=== PATIENT | male | born 1985 | race Caucasian/White ===

== ENCOUNTER 2017-11-10 10:09 | Emergency (ER) | payer SELFPAY ==
--- NOTE | 2017-11-10 10:13 | ER Report ---
History and Physical Time Seen By MD: 10:12 HPI/ROS CHIEF COMPLAINT: Shoulder pain HISTORY OF PRESENT ILLNESS: Patient states having pain to the anterior right shoulder. States that he feels pain right at the area of the junction of the clavicle and acromion process. I worse pain with abduction of the shoulder greater than 30. 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 Eyes any other traumatic type injury. Does have a remote history of rotator cuff injury to the affected shoulder in the past. Allergies: Coded Allergies: No Known Drug Allergies (Unverified , 11/10/17) Home Meds Active Scripts Hydrocodone Bit/Acetaminophen (HYDROCODON-ACETAMINOPHEN 5-325) 1 Each Tablet, 1 EACH PO Q4-6H for PAIN, #12 TAB 0 Refills TAKE ONE TABLET BY MOUTH EVERY 4-6 HOURS NEEDED FOR PAIN Prov:WALESKA RODRÍGUEZ MD 11/10/17 Past Medical/Surgical History History of old right sided rotator cuff injury. Constitutional Vital Sign - Last 24 Hours 11/10/17 11/10/17 10:10 12:18 Temp 98.2 Pulse 99 70 Resp 18 18 B/P (MAP) 143/90 136/82 (100) Pulse Ox 94 94 O2 Delivery Room Air Room Air Physical Exam General appearance: Alert no distress. Respiratory: Chest is non tender, lungs are clear to auscultation. Cardiac: Regular rate and rhythm Examination of the right shoulder shows no acute deformity. Sensation intact over the right deltoid. Patient has pain with abduction at 30 or greater. The patient also has point tenderness to the acromioclavicular joint area. There is no overlying erythema or rash. Medical Decision Making EKG/Imaging Imaging ED right clavicle: Negative ED right shoulder negative ED Course/Re-evaluation ED Course X-ray of shoulder and clavicle unremarkable. We'll discharge home Decision to Disposition Date: Nov 10, 2017 Decision to Disposition Time: 12:13 Depart Departure Latest Vital Signs Vital Signs Date Time Temp Pulse Resp B/P (MAP) Pulse Ox O2 Delivery O2 Flow Rate FiO2 11/10/17 12:18 70 18 136/82 (100) 94 Room Air 11/10/17 10:10 98.2 Impression: Primary Impression: Acromioclavicular (AC) joint injury Condition: Improved Disposition: HOME OR SELF-CARE Referrals: [facility] 1 Week if symptoms do not improve New Scripts Hydrocodone Bit/Acetaminophen (HYDROCODON-ACETAMINOPHEN 5-325) 1 Each Tablet 1 EACH PO Q4-6H for PAIN, #12 TAB 0 Refills TAKE ONE TABLET BY MOUTH EVERY 4-6 HOURS NEEDED FOR PAIN Prov: WALESKA RODRÍGUEZ MD 11/10/17 Departure Forms: ER Transition Record, Medications Reconciliation, Off Work/School Form, School or Work Release?: Work Number of days to be released: 2 Patient Portal Information Patient Instructions: Exercises for Internal and External Shoulder Rotation (GEN), Exercises for Shoulder Abduction and Adduction (ED), Exercises for Shoulder Flexion and Extension (ED), Shoulder Sprain (ED) Problem Qualifiers Primary Impression: Acromioclavicular (AC) joint injury Encounter type: initial encounter Laterality: right Qualified Codes: S49.91XA - Unspecified injury of right shoulder and upper arm, initial encounter WALESKA RODRÍGUEZ MD Nov 10, 2017 10:13
[2017-11-10] MEDS ORDERED: LOR5/325 PO (12:14)
[2017-11-10 12:18] VITALS: BP 136/82
--- NOTE | 2017-11-10 12:52 | RADIOLOGY IMAGING REPORT ---
FACILITY: [facility] PATIENT NAME: Haris Bejarano : 1985 MR: [id number] V: [id number] EXAM DATE: ORDERING PHYSICIAN: WALESKA RODRÍGUEZ TECHNOLOGIST: Location: [facility] Patient: Haris Bejarano : 1985 Visit/Account:[id number] Date of Sevice: 11/10/2017 Examination: SHOULDER MIN 2 VIEWS RIGHT, CLAVICLE RIGHT Comparison: None. History: Acromioclavicular joint pain. Findings: 2 views right shoulder: No fracture. Glenohumeral joint alignment is unremarkable. Acromion clavicula r joint alignment is within normal limits with minimal degenerative change present. Visualized right chest is unremarkable. Soft tissues are unremarkable. 2 views right clavicle: No fracture. Acromioclavicular and coracoclavicular alignment is within adela l limits. Minor degenerative change along the acromioclavicular joint. Soft tissues are unremarkable. Visualized lungs are clear. IMPRESSION: 1. No right shoulder or right clavicle fracture or malalignment. 2. Acromioclavicular joint minor degenerative change. Report Dictated By: Haris Foster MD at 11/10/2017 12:48 PM Report E-Signed By: Haris Foster MD at 11/10/2017 12:49 PM WSN:[id number]
--- NOTE | 2017-11-10 12:53 | RADIOLOGY IMAGING REPORT ---
FACILITY: [facility] PATIENT NAME: Haris Bejarano : 1985 MR: [id number] V: [id number] EXAM DATE: ORDERING PHYSICIAN: WALESKA RODRÍGUEZ TECHNOLOGIST: Location: [facility] [place] Patient: Haris Bejarano : 1985 Visit/Account:[id number] Date of Sevice: 11/10/2017 Examination: SHOULDER MIN 2 VIEWS RIGHT, CLAVICLE RIGHT Comparison: None. History: Acromioclavicular joint pain. Findings: 2 views right shoulder: No fracture. Glenohumeral joint alignment is unremarkable. Acromion clavicula r joint alignment is within normal limits with minimal degenerative change present. Visualized right chest is unremarkable. Soft tissues are unremarkable. 2 views right clavicle: No fracture. Acromioclavicular and coracoclavicular alignment is within adela l limits. Minor degenerative change along the acromioclavicular joint. Soft tissues are unremarkable. Visualized lungs are clear. IMPRESSION: 1. No right shoulder or right clavicle fracture or malalignment. 2. Acromioclavicular joint minor degenerative change. Report Dictated By: Haris Foster MD at 11/10/2017 12:48 PM Report E-Signed By: Haris Foster MD at 11/10/2017 12:49 PM WSN:[id number]
== END 2017-11-10 12:18 | disposition home or self-care (01) ==
LOC: ER 10:17
DX: S49.91XA Unspecified injury of right shoulder and upper arm, initial encounter (principal)
CPT/HCPCS: 99283